=== PATIENT | male | born 1940 | race Caucasian/White ===

== ENCOUNTER → 2024-12-03 | Outpatient (CLI) | payer MEDICARE, BC ==
[2024-12-03 16:14] LABS: African American GFR (CKD) 77 (>60 ml/min/1.73 sqM); Blood Urea Nitrogen 20 mg/dL (9-20); Non-African American GFR(CKD) 67 (>60 ml/min/1.73 sqM)
--- NOTE | 2024-12-03 17:05 | CT ---
EXAMINATION TYPE: CT angio chest CT DLP: 255.1 mGycm, Automated exposure control for dose reduction was used. DATE OF EXAM: 12/03/2024 4:47 PM COMPARISON: Outside institution CT chest 02/06/2024 CLINICAL INDICATION:Male, 84 years old with history of R06.02 SHORTNESS OF BREATH C34.81 MALIGNANT NE OPLA; STAT H&C: SOB, Hx of lung cancer and COPD. TECHNIQUE/CONTRAST: CTA scan of the thorax is performed with IV Contrast, patient injected with 100 ml mL of Isovue 370, pulmonary embolism protocol. MIP images are created and reviewed. FINDINGS: Pulmonary Artery: There is no evidence for a filling defect within the pulmonary vasculature to sugge st acute pulmonary embolism. The pulmonary artery is of normal size. Lungs/Pleura: Elevation of the right hemidiaphragm. No pneumothorax. Small right pleural effusion. Sc attered regions of patchy consolidative opacities throughout the lungs. Increased size of right upper lobe suprahilar pulmonary mass from prior examination. Measures grossly 7.7 x 4.3 cm, previously 5.9 x 4.0 cm. Resultant postobstructive atelectasis with air bronchograms of the right upper lobe. Encas ement of the right upper lobe pulmonary arteries. Few enlarged scattered solid pulmonary nodules. Thea luation is limited due to surrounding consolidation. Examples include right lower lobe 1.6 cm nodule (series 4, image 50). Previously measured up to 1.1 cm. Lingular 1.9 cm solid pulmonary nodule, previ ously measured up to 1 cm (series 4, image 54). Pleural-based left lower lobe 2.0 cm pulmonary nodule , previously measured up to 1.3 centers (series 4, image 47). Mild centrilobular emphysematous change s. Airway: Large airways are patent. Heart: Upper limits of normal size.Left atrial appendage occlusion device. Mild coronary artery calci fications present. Leadless pacemaker device within the right atrium. Vasculature: No evidence of aortic aneurysm. Mild atherosclerotic calcification of the aorta and its branches. Mediastinum: Right suprahilar mass as described above. Enlarged subcarinal lymph node redemonstrated measuring up to 1.8 cm short axis. Additional subcentimeter scattered mediastinal lymph nodes. Musculoskeletal: No acute osseous abnormalities. Mild multilevel degenerative disc disease. No aggres sive osseous lesion. Soft Tissues: Bilateral gynecomastia. Lower neck: No significant findings. 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 Exophytic right mid kidney 1.9 cm simple appearing cyst. No follow up recommended . Couple stable hypodense simple appearing cysts within the liver. IMPRESSION: 1. No evidence of pulmonary embolism. 2. Progression of lung cancer with enlarging right suprahilar pulmonary mass and enlarging few scatte red metastatic pulmonary nodules. The pulmonary mass results in right upper lobe postobstructive atel ectasis. 3. Development of scattered patchy consolidative opacities throughout the lungs consistent with pneum onia. 4. Similar nonspecific enlarged subcarinal lymph node with a few prominent mediastinal lymph nodes. M ay represent metastatic disease versus reactive to #3. 5. Small right pleural effusion. [facility], , 12/03/2024 5:03 PM
== END | disposition home or self-care (01) ==
LOC: RADCTMAIN 15:34
PROVIDERS: ATTEND Internal Medicine Hematology & Oncology
DX: C34.81 Malignant neoplasm of overlapping sites of right bronchus and lung (principal); J90 Pleural effusion, not elsewhere classified; R59.0 Localized enlarged lymph nodes; R91.8 Other nonspecific abnormal finding of lung field; J98.4 Other disorders of lung
CPT/HCPCS: 82565; 84520; 71275; 36415; Q9967